=== PATIENT | female | born 1985 | race Caucasian/White ===

== ENCOUNTER 2017-10-18 09:05 | Emergency (ER) | payer OTHER ==
[2017-10-18 09:07] VITALS: BMI 40.1
[2017-10-18 09:08] VITALS: O2SAT 99
[2017-10-18] MEDS ORDERED: Bismuth Subsalicylate 262 mg Chew Tab PO STA (09:49)
[2017-10-18] MEDS ORDERED: Bismuth Subsalicylate 262 mg/15 ml Sus (240 ml) ONE (10:13)
[2017-10-18 10:17] LABS: BASO % 0.6 % (0.0-2.0); EOS # 0.1 K/uL (0.0-0.7); EOS % 2.4 % (0.0-4.0); HEMOGLOBIN 14.2 g/dL (12.0-16.0); LYMPH # 1.6 K/uL (1.0-4.3); LYMPH % 29.3 % (20.0-40.0); MEAN CORPUSCULAR HEMOGLOBIN 28.8 pg (27.0-31.0); MEAN CORPUSCULAR HGB CONC 35.1 g/dL (33.0-37.0); MEAN PLATELET VOLUME 8.2 fl (7.2-11.7); MONO # 0.5 K/uL (0.0-0.8); NEUT # 3.1 K/uL (1.8-7.0); NEUT % 57.7 % (50.0-75.0); NRBC % 0.1 % (0.0-0.0); RBC 4.93 Mil/uL (3.80-5.20); RED CELL DISTRIBUTION WIDTH 12.8 % (11.5-14.5); WHITE BLOOD COUNT 5.3 K/uL (4.8-10.8)
[2017-10-18] MEDS ORDERED: Bismuth Subsalicylate 262 mg/15 ml Sus (240 ml) PO STA (10:30)
[2017-10-18 10:37] LABS: ALB/GLOB RATIO 1.2 (1.0-2.1); ALT/SGPT 31 U/L (9-52); AST/SGOT 26 U/L (14-36); BLOOD UREA NITROGEN 6 mg/dl (7-17); CALCIUM 9.5 mg/dL (8.4-10.2); GFR NON-AFRICAN AMERICAN > 60; LIPASE 72 U/L (23-300)
--- NOTE | 2017-10-18 10:50 | ED PDOC ---
HPI:Nausea, Vomiting, Diarrhea Time Seen by Provider: 10/18/17 09:18 Chief Complaint (Nursing): GI Problem Chief Complaint (Provider): Diarrha and Abdominal Pain History Per: Patient History/Exam Limitations: no limitations Onset/Duration Of Symptoms: Days Current Symptoms Are (Timing): Still Present Quality Of Discomfort: Cramping Associated Symptoms: Nausea. denies: Fever, Chills, Vomiting, Urinary Symptoms Additional Complaint(s): 32 year old female presents to the ER for an evaluation of diarrhea and cramping stomach pain onset for 2 weeks. Patient states she has pain and discomfort when using the bathroom. Also reports of nausea and traced blood in stool yesterday and twice today. She has 8 episodes of diarrhea a day for which she has not taken any mediation. Patient denies sick contacts or recent travels , fever, chills or vomiting. LNMP: unknown and irregular PMD: Dr. Palomo Briscoe Past Medical History Reviewed: Historical Data, Nursing Documentation, Vital Signs Vital Signs: Last Vital Signs Temp 99 F 10/18/17 09:07 Pulse 84 10/18/17 09:07 Resp 17 10/18/17 09:07 BP 138/90 10/18/17 09:07 Pulse Ox 99 10/18/17 09:07 - Medical History PMH: HTN (no longer on meds), Hypothyroidism - Family History Family History: States: Unknown Family Hx - Social History Current smoker - smoking cessation education provided: No Alcohol: None Drugs: Denies - Immunization History Hx Tetanus Toxoid Vaccination: No Hx Influenza Vaccination: No Hx Pneumococcal Vaccination: No - Home Medications Home Medications: Ambulatory Orders Medication Instructions Recorded Dexamethasone 12 mg PO ONCE #2 tab 03/10/17 Ibuprofen [Motrin] 600 mg PO Q6 #30 tab 03/10/17 Pseudoephedrine HCl [Sudafed 24 240 mg PO DAILY PRN #1 unit 03/10/17 Hour] Atropine/Diphenoxylate [Lonox 1 tab PO Q4H PRN #20 tab 10/18/17 0.025 MG-2.5 MG] Bismuth Subsalicylate [Pepto 262 mg PO Q3H PRN #30 ctb 10/18/17 Bismol] - Allergies Allergies/Adverse Reactions: Allergies Allergy/AdvReac Type Severity Reaction Status Date / Time No Known Allergies Allergy Verified 10/18/17 09:09 Review of Systems ROS Statement: Except As Marked, All Systems Reviewed And Found Negative Constitutional: Negative for: Fever, Chills Gastrointestinal: Positive for: Nausea, Diarrhea. Negative for: Vomiting Genitourinary Female: Negative for: Dysuria, Hematuria Psych: Negative for: Suicidal ideation (homicidal ideation) Physical Exam - Reviewed Nursing Documentation Reviewed: Yes Vital Signs Reviewed: Yes - Physical Exam Appears: Positive for: Non-toxic, No Acute Distress Head Exam: Positive for: ATRAUMATIC, NORMAL INSPECTION, NORMOCEPHALIC Skin: Positive for: Normal Color, Warm, Dry Eye Exam: Positive for: EOMI, Normal appearance, PERRL ENT: Positive for: Normal ENT Inspection Neck: Positive for: Normal, Painless ROM, Supple. Negative for: Decreased ROM Cardiovascular/Chest: Positive for: Regular Rate, Rhythm. Negative for: Murmur Respiratory: Positive for: Normal Breath Sounds. Negative for: Decreased Breath Sounds, Wheezing, Respiratory Distress Gastrointestinal/Abdominal: Positive for: Tenderness (generalized epigastric ). Negative for: Guarding, Rebound Back: Positive for: Normal Inspection Extremity: Positive for: Normal ROM. Negative for: Tenderness, Pedal Edema, Deformity Neurologic/Psych: Positive for: Alert, Oriented (x3). Negative for: Motor/ Sensory Deficits - Laboratory Results Result Diagrams: 10/18/17 10:05 10/18/17 10:05 - ECG O2 Sat by Pulse Oximetry: 99 (RA) Pulse Ox Interpretation: Normal Medical Decision Making Medical Decision Making: Time: 947 Initial Plan: --CMP --Lipase --ED Urine --ED Urine Dipstick --CBC W/ Differential --Pepto Bismol 524mg --Ova and Parasite --Stool Culture --IV Insertion --Reevaluation Scribe Attestation: Documented by Delia Mayorga, acting as a scribe for Nilam Burch MD Provider Scribe Attestation: All medical record entries made by the Scribe were at my direction and personally dictated by me. I have reviewed the chart and agree that the record accurately reflects my personal performance of the history, physical exam, medical decision making, and the department course for this patient. I have also personally directed, reviewed, and agree with the discharge instructions and disposition. Disposition - Clinical Impression Clinical Impression: Diarrhea - Patient ED Disposition Is Patient to be Admitted: No Doctor Will See Patient In The: Office Counseled Patient/Family Regarding: Diagnosis - Disposition Referrals: Luis Felipe Culver [Family Provider] - [facility] [Outside] Disposition: Routine/Home Disposition Time: 12:10 Condition: IMPROVED Prescriptions: Atropine/Diphenoxylate [Lonox 0.025 MG-2.5 MG] 1 tab PO Q4H PRN #20 tab PRN Reason: Diarrhea Bismuth Subsalicylate [Pepto Bismol] 262 mg PO Q3H PRN #30 ctb PRN Reason: Diarrhea Instructions: Diarrhea in Adolescents and Adults Forms: [facility] ([place]) - POA Present On Arrival: None
[2017-10-18 13:05] VITALS: BP 129/62; PULSE 77; RESP 18; TEMP 98.8
== END 2017-10-18 13:10 | disposition home or self-care (01) ==
LOC: H.ER 09:05
DX: R19.7 Diarrhea, unspecified (principal); R10.9 Unspecified abdominal pain; E03.9 Hypothyroidism, unspecified; I10 Essential (primary) hypertension